=== PATIENT | female | born 1935 | race Caucasian/White ===

== ENCOUNTER 2018-07-02 20:23 | Emergency (ER) | payer MEDICARE, BC ==
[2018-07-02 20:44] VITALS: RESP 16; TEMP 97.1
[2018-07-02] MEDS: LABETALOL HYDROCHLORIDE 100 MG TAB PO ONE ×2 (20:49→21:06)
[2018-07-02] MEDS ORDERED: LABETALOL HYDROCHLORIDE 100 MG TAB ONE (20:53)
[2018-07-02 22:21] VITALS: BP 192/102; PULSE 80; O2SAT 91
== END 2018-07-02 22:10 | disposition home or self-care (01) | DRG 552 ==
LOC: ED 20:23
DX: M54.5 Low back pain (principal); W01.0XXA Fall on same level from slipping, tripping and stumbling without subsequent striking against object, initial encounter; Z91.81 History of falling; R40.2362 Coma scale, best motor response, obeys commands, at arrival to emergency department; R40.2142 Coma scale, eyes open, spontaneous, at arrival to emergency department; R40.2252 Coma scale, best verbal response, oriented, at arrival to emergency department; R51 Headache
CPT/HCPCS: 70450; 99283; A9270-GY